=== PATIENT | female | born 1985 ===

== ENCOUNTER 2024-07-24 09:55 | Inpatient (IN) | payer SELFPAY ==
[2024-07-24] VITALS (18 sets, daily range): BP systolic 95–128; BP diastolic 57–72; PULSE 56–100; RESP 13–20; TEMP 36.6–36.9; O2SAT 97–100; BMI 23.8
--- NOTE | 2024-07-24 10:03 | XR_ITS ---
WS: [id number] Exam: XR chest 1V portable [id number] Date/Time of Exam: 07/24/2024 10:03 AM Reason For Exam: dyspnea/cough No priors. The lungs are fully inflated and clear. Normal cardiomediastinal silhouette. Some rotation of the [address] noted. No pleural effusions. Unremarkable bony elements. XR/XR chest 1V portable [id number] IMPRESSION: 1. Negative chest.
--- NOTE | 2024-07-24 10:07 | PC.NURSE ---
POISON CONTROL CALLED. HAS POTENTIAL TO BE LETHAL, LOOKING FOR GASTRIC HEMORRHAGE, ANGIOEDEMA, HYPOTENSION, TACHYCARDIA, LEASE ANALYST STIMULATION. SOLU-MEDROL, BENADRYL, SUBCUTANEOUS EPI, AND SYSTEMATIC SUPPORTIVE CARE. EMS VITALS: 135/90, 88 HR.
--- NOTE | 2024-07-24 10:19 | PC.NURSE ---
pts mother called asking for information but is not in patients chart. informed mother that pt could not have visitors except from 3-4pm. mother states 'please tell me whats going on with her, she is our only child. please just tell me if shes alive.' informed mother that she is not in the chart and i could not give her any information about pt or who is in her chart.
--- NOTE | 2024-07-24 11:57 | PC.NURSE ---
96 hour hold rights read and reviewed with patient. Bryant from Security present during reading of rights. Patient verbalized understandings of rights and copy of rights given to patient.
[2024-07-24 12:05] LABS: Acetaminophen < 5.0 ug/mL (10-30); Alanine Aminotransferase 13 U/L (0-33); Albumin Level 3.7 g/dL (3.5-5.2); Alcohol Level < 10 mg/dL (0-10); Alkaline Phosphatase 42 U/L (35-105); Aspartate Amino Transferase 17 U/L (0-32); Blood Urea Nitrogen 7 mg/dL (6-20); Calcium 8.2 mg/dL (8.5-10.5); Carbon Dioxide 19 mmol/L (22-29); Chloride 108 mmol/L (98-107); Creatinine Clr Calc Pharmacy 164.6659; Globulin 2.3 g/dL (1.3-4.6); Glomerular Filtration Rate 180.6 mL/min (90-130); Glucose 84 mg/dL (65-115); Osmolality Calculated 287 mOsm/kg (285-295); Salicylate < 0.3 mg/dL (3-10); Sodium 140 mmol/L (136-145); Total Bilirubin 0.4 mg/dL (0.15-1.2)
--- NOTE | 2024-07-24 12:05 | ED_ITS ---
HPI - Overdose 2 General: Chief Complaint: Overdose Stated Complaint: attempted od Time Seen by Provider: 07/24/24 10:02 History of Present Illness: 38-year-old female presents to the emerg ency room after an attempted overdose on a cleaning product which she mixed in water and swallowed she thinks she maybe drank about a half a cup of the dry powder that she mixed in with the water but she did vomit several of that up she is lethargic when she arrived here she denies any recent use of drugs or alcohol Related Data Home Medications Medication Instructions Recorded Confirmed multivitamin with minerals-folic 2 tab PO DAILY 07/24/24 07/24/24 acid 200 mcg chewable tablet (Women's Multivitamin Gummies) Review of Systems 2 Const: Denies: fever(s) or chills Card: Denies: chest pain Resp: Denies: dyspnea GI: Denies: abdominal pain : Denies: dysuria, urinary frequency or urinary urgency Musc: Denies: neck pain or back pain Skin/Breast: Denies: rash Physical Exam 2 Const: COMMON NORMALS: no acute distress GENERAL APPEARANCE: cooperative and comfortable ORIENTATION/CONSCIOUSNESS: Yes awake, Yes oriented to person, Yes oriented to place and Yes oriented to time HENMT: COMMON NORMALS: normocephalic, atraumatic and hearing grossly normal bilaterally HEAD & SCALP: normocephalic and atraumatic Resp: COMMON NORMALS: normal respiratory effort, No retractions, No use of accessory muscles and clear to auscultation bilaterally AUSCULTATION: clear to auscultation bilaterally Cardio: COMMON NORMALS: regular rate, regular rhythm and No murmurs present (Cardio) RATE: regular rate RHYTHM: regular rhythm GI: COMMON NORMALS: Soft to palpation and No hepatosplenomegaly present A USCULTATION: Yes normoactive bowel sounds PALPATION: Yes Soft to palpation, No Tenderness to palpation present (GI), No Guarding due to palpation present (GI) and Yes No hepatosplenomegaly present Extremity: COMMON NORMALS: normal to inspection, capillary refill normal, no clubbing, cyanosis or edema, no calf tenderness and no pedal edema Neuro: SENSORIUM/ORIENTATION: Yes oriented to person, Yes oriented to place and Yes oriented to time Skin: COMMON NORMALS: no rashes or lesions noted GENERAL SKIN EXAM: no rashes or lesions noted Course 2 Vital Signs: Vital signs: Vital Signs Temperature 98.4 F 07/24/24 09:58 Pulse Rate 64 07/24/24 14:33 Respiratory Rate 17 07/24/24 14:01 Blood Pressure 98/61 07/24/24 14:33 Pulse Oximetry 100 07/24/24 14:33 Oxygen Delivery Me thod Room Air 07/24/24 09:58 MDM - Overdose Medical Decision Making Contacted poison control and they recommended observation and supportive cares. Patient does not have any signs of mucosal injury. She has not had any symptoms since she has arrived here on the monitor and EKG she has remained normal. Laboratory tests are positive for amphetamines and marijuana. Alcohol negative salicylates and acetaminophen otherwise negative discussed with Dr. Acevedo he agrees to take patient in the psychiatric department. Patient is admitted under 96-hour hold. Medical Records I reviewed the patient's medical records. Lab Data I reviewed the patient's lab results. 07/24/24 14:10 07/24/24 11:43 Radiology Impressions Chest X-Ray 07/24/24 10:03 IMPRESSION: 1. Negative chest. Laboratory Results WBC Cancelled 07/24/24 11:17 Corrected WBC Cancelled 07/24/24 11:17 RBC Cancelled 07/24/24 11:17 Hgb Cancelled 07/24/24 11:17 Hct Cancelled 07/24/24 11:17 MCV Cancelled 07/24/24 11:17 MCH Cancelled 07/24/24 11:17 MCHC Cancelled 07/24/24 11:17 RDW Cancelled 07/24/24 11:17 Plt Count Cancelled 07/24/24 11:17 MPV Cancelled 07/24/24 11:17 Gran % Cancelled 07/24/24 11:17 Neut % (Auto) Cancelled 07/24/24 11:17 Lymph % (Auto) Cancelled 07/24/24 11:17 [place] % (Auto) Cancelled 07/24/24 11:17 Eos % (Auto) Cancelled 07/24/24 11:17 Baso % (Auto) Cancelled 07/24/24 11:17 Neut # (Auto) Cancelled 07/24/24 11:17 Lymph # (Auto) Cancelled 07/24/24 11:17 [place] # (Auto) Cancelled 07/24/24 11:17 Eos # (Auto) Cancelled 07/24/24 11:17 Baso # (Auto) Cancelled 07/24/24 11:17 Absolute Gran (auto) Cancelled 07/24/24 11:17 Nucleated RBC % (auto) Cancelled 07/24/24 11:17 Nucleated RBCs # Cancelled 07/24/24 11:17 Sodium 140 mmol/L (136-145) 07/24/24 11:43 Potassium 3.6 mmol/L (3.5-5.1) 07/24/24 11:43 Chloride 108 mmol/L (98-107) H 07/24/24 11:43 Carbon Dioxide 19 mmol/L (22-29) L 07/24/24 11:43 Anion Gap 16.6 (5-19) 07/24/24 11:43 BUN 7 mg/dL (6-20) 07/24/24 11:43 Creatinine 0.4 mg/dL (0.5-0.9) L 07/24/24 11:43 GFR Calculation 180.6 mL/min (90-130) H 07/24/24 11:43 Glucose 84 mg/dL (65-115) 07/24/24 11:43 Calculated Osmolality 287 mOsm/kg (285-295) 07/24/24 11:43 Calcium 8.2 mg/dL (8.5-10.5) L 07/24/24 11:43 Total Bilirubin 0.4 mg/dL (0.15-1.2) 07/24/24 11:43 AST 17 U/L (0-32) 07/24/24 11:43 ALT 13 U/L (0-33) 07/24/24 11:43 Alkaline Phosphatase 42 U/L (35-105) 07/24/24 11:43 Total Protein 6.0 g/dL (6.6-8.7) L 07/24/24 11:43 Albumin 3.7 g/dL (3.5-5.2) 07/24/24 11:43 Globulin 2.3 g/dL (1.3-4.6) 07/24/24 11:43 Urine Color Yellow (Yellow) 07/24/24 10:46 Urine Appearance Clear (CLEAR) 07/24/24 10:46 Urine pH 5.5 (5-7) 07/24/24 10:46 Ur Specific [place] 1.009 (1.005-1.030) 07/24/24 10:46 Urine Protein Negative (Negative) 07/24/24 10:46 Urine Glucose (UA) Negative (Normal) 07/24/24 10:46 Urine Ketones 1+ (Negative) H 07/24/24 10:46 Urine Blood Negative (Negative) 07/24/24 10:46 Urine Nitrate Negative (Negative) 07/24/24 10:46 Urine Bilirubin Negative (Negative) 07/24/24 10:46 Urine Urobilinogen 0.2 mg/dL (Negative) 07/24/24 10:46 Ur Leukocyte Esterase Negative (Negative) 07/24/24 10:46 Urine RBC 0-2 /hpf (0-2) 07/24/24 10:46 Urine WBC 0-5 /hpf (0-5) 07/24/24 10:46 Ur Squamous Epith Cells 0-5 /hpf (0-5) 07/24/24 10:46 Amorphous Sediment Not Reportable 07/24/24 10:46 Urine Bacteria None seen /hpf (NONE) 07/24/24 10:46 Hyaline Casts 0-4 /lpf H 07/24/24 10:46 Salicylates < 0.3 mg/dL (3-10) L 07/24/24 11:43 Urine Opiates Screen Negative ng/mL (Negative) 07/24/24 10:46 Acetaminophen < 5.0 ug/mL (10-30) L 07/24/24 11:43 Ur Barbiturates Screen Negative ng/mL (Negative) 07/24/24 10:46 Ur Phencyclidine Scrn Negative ng/mL (Negative) 07/24/24 10:46 Ur Amphetamines Screen Positive ng/mL (Negative) H 07/24/24 10:46 U Benzodiazepines Scrn Negative ng/mL (Negative) 07/24/24 10:46 Urine Cocaine Screen Negative ng/mL (Negative) 07/24/24 10:46 U Marijuana (THC) Screen Positive ng/mL (Negative) H 07/24/24 10:46 Ethyl Alcohol < 10 mg/dL (0-10) 07/24/24 11:43 All radiology interpretation(s) finalized by discharge Discharge Plan Discharge Patient Disposition: Admitted As Inpatient Admit Provider: Lion Horowitz Clinical Impression: Suicide attempt by drug ingestion, Methamphetamine use Condition: Stable Coding Level of Care Code ED Leg Man for Tavo Esparza
[2024-07-24 12:06] LABS: Anion Gap 16.6 (5-19); Potassium 3.6 mmol/L (3.5-5.1)
--- NOTE | 2024-07-24 13:34 | PC.NURSE ---
POISON CONTROL STATES PATIENT IS OK FOR PATIENT TO GO STRESS UNIT.
[2024-07-24 13:41] LABS: Bilirubin Urine Negative (Negative); Blood Urine Negative (Negative); Glucose Urine UA Negative (Normal); Ketones Urine 1+ (Negative); Leukocyte Esterase Urine Negative (Negative); Nitrate Urine Negative (Negative); Protein Urine Negative (Negative); Specific Gravity, Urine 1.009 (1.005-1.030); Urine Appearance Clear (CLEAR); Urine Color Yellow (Yellow); Urobilinogen Urine 0.2 mg/dL (Negative); pH Urine 5.5 (5-7)
[2024-07-24 13:46] LABS: Add Urine Microscopic? YES; Bacteria Urine None Seen /hpf; Hyaline Casts Urine 0-4 /lpf; RBC Urine 0-2 /hpf (0-2); Squamous Epithelial Cell Urine 0-5 /hpf (0-5); WBC Urine 0-5 /hpf (0-5)
[2024-07-24 13:49] LABS: Amphetamines Screen Urine Positive (Negative); Barbiturates Screen Urine Negative (Negative); Benzodiazepines Screen Urine Negative (Negative); Cocaine Screen Urine Negative (Negative); Opiate Screen Urine Negative (Negative); PCP Screen Urine Negative (Negative); THC Screen Urine Positive (Negative)
[2024-07-24 14:12] LABS: Basophils % 0.5 %; Eosinophils # 0.1 10^3/uL (0.0-0.8); Eosinophils % 0.7 %; Hematocrit 39.1 % (36-47); Lymphocytes % 34.1 %; Mean Corpuscular HGB Conc 30.9 g/dL (30-55); Mean Corpuscular Hemoglobin 32.3 pg (27-33); Mean Corpuscular Volume 104.3 fl (85-98); Mean Platelet Volume 8.9 fL (7.4-10.4); Monocytes # 0.8 10^3/uL (0.2-0.9); Monocytes % 8.6 %; Neutrophils % 55.8 %; Nucleated Red Blood Cells % 0 %; Platelet Count 452 10^3/cmm (157-399); Red Blood Count 3.75 10^6/uL (3.85-5.65); Red Cell Distribution Width 12.8 % (12.1-15.1); White Blood Count 8.77 10^3/uL (3.29-11.43)
--- NOTE | 2024-07-24 15:57 | PC.NURSE ---
Patient reportedly attempted to overdose on half a cup of iron-out acid cleaner with water. She says she did this because she found out who her fiance of 10 years was cheating on her with. 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 Endorses attempting to overdose because she thought she would rather than see him with someone else. Patient has a history of IV meth use, but says she only smokes or eats it now with her last use being 2 days ago. Unsure of how much she uses but says it is a lot . Also endorses daily marijuana and tobacco usage. She denies any psychiatric history of any kind and denies feeling suicidal at this time. Patient says she feels stupid and would never attempt to OD again. Patient cooperative. Sobbing off and on throughout admission assessment.
[2024-07-24] MEDS: nicotine 2 mg Gum BUCCAL (16:44)
[2024-07-24] MEDS: OLANZapine 5 mg ODT PO (17:11)
[2024-07-24] MEDS: hyDROXYzine 25 mg Capsule 50 MG PO ×2 (17:11→22:12)
--- NOTE | 2024-07-24 17:17 | PC.NURSE ---
Addendum entered and electronically signed by Soraya Chung RN 07/24/24 18:17: PT OBSERVED IN DAY ROOM RESTING. MEDICATIONS DEEMED EFFECTIVE, PT IS NO LONGER TEARFUL. Original Note: PT OBSERVED IN DAY ROOM SLUMPED OVER CRYING HYSTERICALLY. SET KEY DRIVER OFFERRED TO SPEAK TO PT TO CALM HER BUT PT DECLINES STATING SHE WILL JUST SIT THERE AND CRY. RN ADMINISTERED VISTARIL 50 MG AND ZYDIS 5MG ORDERED FOR INCREASED ANXIETY. PT DID TAKE THE MEDICATIONS WITHOUT DIFFICULTY. PT THEN SAT IN DAY ROOM AND ATE DINNER.. CONTINUES TO HAVE ANXIETY, DEPRESSION AND IS TEARFUL AT TIMES. SUPPORT VOICED.
[2024-07-24] MEDS: trazodone 50 mg Tablet PO (22:12)
[2024-07-25 06:00] VITALS: BP 96/51; PULSE 71; RESP 16; TEMP 36.7; O2SAT 99
[2024-07-25] MEDS: multivitamin therapeutic Tablet 1 TAB PO (08:46)
--- NOTE | 2024-07-25 09:42 | P.NPUHP_ITS ---
Providers/Chief Complaint 2 Admitting Physician: Lion Horowitz MD Chief Complaint: attempted od HPI NPU History of Present Illness Trinity Mancia is a 38 year old female with no previous history of inpatient psychiatric hospitalization who presented to the emergency department by EMS after the patient had attempted overdose by mixing a cleaning product with water. The patient had reported that she had wanted to and acknowledged having thrown up several times after consuming the liquid. Patient was medically cleared and admitted to the neuropsychiatric unit for further evaluation and treatment. Patient had reported that she had received information on 07/23/2024 that her fianc? of 10 years had been recently cheating on her. She reports that she received this information from her son over a phone call. She reports that she had then confronted her fianc? at home yesterday and she reports that her fianc? had left the home last night. She reports that she had thought all night about it and stated that she was in a bad place and subsequently this morning reported that she had mixed the concoction and consumed it. She reports that she was found by her fianc?'s mother and emergency services were called. Patient reports that she had done something stupid . 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 She had reported no recent problems with depression or anxiety. She denied any history of changes in energy or appetite. She denied any history of previous suicide attempts. She reported no current feelings of hopelessness. She had denied any history of rodney. She denied any history of psychotic symptoms. She had reported that she is a routine daily user of methamphetamine intranasally for several years along with regular and frequent use of marijuana as well. She had denied any history of psychosis associated with the use of either substance. She reports no current active psychosocial stressors otherwise. Inpatient psychiatric history: None Outpatient psychiatric history: None Substance abuse history: She reports no history of alcohol abuse with no history of alcohol dependence either. She has no history of alcohol related withdrawal symptoms. The patient reports as stated above use of methamphetamine for more than 15 years and reports no history of drug or alcohol treatment of any kind. She denies any history of opiate abuse. She had endorsed routine marijuana use since the age of 18. Legal history: None reported Medical history: None reported Surgical history: None Allergies: No known drug allergies Current medications: None Family psychiatric history: None reported Social history: Patient was raised in [facility] [place] [facility] and born in [facility]. She reports that she grew up in an intact family until the age of 9 when her parents . She reports that she is the only child. She had denied any history of sexual physical or emotional abuse. She reported no history of learning problems. She states she graduated from high school in [place] [place] [facility] and was at the age of 18 1 time previously. She is currently . She has a child from this previous relationship age 17.She currently resides on [address] in [place] and is currently unemployed. She has been with her fianc? for the past 10 years. Meds NPU Home Medications Medication Instructions Recorded Confirmed Last Taken Type multivitamin with minerals-folic 2 tab PO DAILY 07/24/24 07/24/24 07/23/24 History acid 200 mcg chewable tablet (Women's Multivitamin Gummies) Allergies Allergy/AdvReac Type Severity Reaction Status Date / Time Penicillins Allergy ALGY-Rash Verified 07/24/24 15:32 Mental Status Exam 2 MSE Comments: Patient is a pleasant cooperative female who appeared her stated age with normal hygiene and no evidence of any abnormal involuntary motor movements, tics, or tremors appreciated. Her speech was normal in regards to rate rhythm and prosody. There was no evidence of psychomotor agitation or psychomotor retardation. Her mood was described as okay. Her affect appeared slightly restricted in range. Her thought process was linear logical and goal-directed. Her thought content showed no active homicidal or suicidal ideation currently although she had acknowledged wanting to earlier this morning leading to her taking an overdose. There was no clear evidence of delusional thinking. She did not appear to be responding to internal stimuli. She was alert and oriented person place time and situation. Her insight is poor. Her judgment was limited. Her impulse control appeared poor as well. Her recent and remote memory were grossly intact. Vitals/I&O/Wt Last Vital Signs Temp 97.9 F 07/24/24 15:33 Pulse 79 07/24/24 15:33 Resp 16 07/24/24 15:33 BP 114/72 07/24/24 15:33 Pulse Ox 100 07/24/24 15:33 O2 Del Method Room Air 07/24/24 15:34 Weight last 48 hrs Weight 56.699 kg Weight 58.967 kg Data NPU 07/24/24 14:10 07/24/24 11:43 A&P Assessment and plan (1) Suicide attempt by drug ingestion: (2) Methamphetamine use: (3) Depression, unspecified: Plan 38-year-old female with a history of polysubstance abuse admitted after reporting acute stressor of finding out that her fianc? of 10 years had infdelity issues proceeding to make a concoction of potentially dangerous cleaning substances with water and in taking it with the intent of to . The patient is currently minimizing her suicidal thoughts. #1.? Engage patient in individual milieu and group therapy. #2?? Recommend sober living treatment at the highest level of care to which the patient is willing to commit #3??? Will monitor patient under auspices of 96 hour hold here. Patient resistant to any drug treatment or treatment for any mood issues. #4?? TO-15 minute checks? #5?? Will attempt to gather collateral information Involuntary Hold Information 2 96 Hour Hold: 96 Hour Involuntary Admission: Yes 96 Hour Hold Ending Date: 08/03/24 96 Hour Hold Ending Time: 10:15 Attestations NPU 2 Medical Necessity Statement*: Inpatient hospitalization is medically necessary and deemed to ?be ?the clinically appropriate intervention ?at this time.? We will monitor/initiate medications and make changes as indicated.? The patient will be in the hospital for over 2 midnights.? The patient?s likely length of stay 5-7 days. Coding Level of Care Code Acute Code for [facility] Fwd Diagnoses Suicide attempt by drug ingestion T50.902A Methamphetamine use F15.10 Depression, unspecified F32.A
[2024-07-25 14:00] VITALS: BP 87/56; PULSE 100; RESP 16; TEMP 36.6; O2SAT 97
[2024-07-25 19:53] VITALS: BP 98/58; PULSE 98; RESP 16; TEMP 36.8; O2SAT 100
[2024-07-25] MEDS: hyDROXYzine 25 mg Capsule 50 MG PO (20:49)
[2024-07-25] MEDS: trazodone 50 mg Tablet PO (20:49)
[2024-07-26 06:00] VITALS: BP 98/57; PULSE 88; RESP 16; TEMP 36.6; O2SAT 96; BMI 22.6
[2024-07-26] MEDS: multivitamin therapeutic Tablet 1 TAB PO (08:43)
--- NOTE | 2024-07-26 09:32 | PC.NURSE ---
asked pt if she wanted to eat. pt stated no she was not hungry. kiln charger notified.
[2024-07-26 14:00] VITALS: BP 103/67; PULSE 91; RESP 16; TEMP 36.8; O2SAT 100
--- NOTE | 2024-07-26 14:07 | W.PM.NPUPNS ---
Subjective NPU Subjective: 38-year-old female with a history of depression and methamphetamine use admitted with overdose on nonspecified industrial cleaner. The patient continued to minimize any depression at this time. She stated that she had improved sleep with trazodone. She reported no pain or ongoing sequela from having swallowed the oral industrial cleaner. Patient was compliant on the milieu and reported sleeping better. He denied any feelings of hopelessness or worthlessness. She reported some low energy. She had reported some anger over discovering that her had been having a an affair. She had reported that she felt that they were still together. She had reported no contact from any family currently. Mental Status Exam MSE Comments: Patient is a pleasant cooperative female who appeared her stated age with normal hygiene and no evidence of any abnormal involuntary motor movements, tics, or tremors appreciated. Her speech was normal in regards to rate rhythm and prosody. There was evidence of mild psychomotor retardation. Her mood was described as okay. Her affect appeared restricted in range today. Her thought process was linear,logical and goal-directed. Her thought content showed no active homicidal or suicidal ideation currently although she had acknowledged wanting to earlier this morning leading to her taking an overdose. There was no clear evidence of delusional thinking. She did not appear to be responding to internal stimuli. She was alert and oriented person place time and situation. Her insight is poor. Her judgment was limited. Her impulse control appeared poor as well. Her recent and remote memory were grossly intact. Vitals/I&O/Wt Last Vital Signs Temp 98 F 07/26/24 06:00 Pulse 88 07/26/24 06:00 Resp 16 07/26/24 06:00 BP 98/57 07/26/24 06:00 Pulse Ox 96 07/26/24 06:00 O2 Del Method Room Air 07/26/24 06:00 Weight last 48 hrs Weight 56.302 kg Weight 56.699 kg Data NPU 07/24/24 14:10 07/24/24 11:43 A&P Assessment and plan (1) Depression, unspecified: (2) Suicide attempt by drug ingestion: (3) Methamphetamine use: Plan 38-year-old female with a history of polysubstance abuse admitted after reporting acute stressor of finding out that her fianc? of 10 years had infdelity issues proceeding to make a concoction of potentially dangerous cleaning substances with water and in taking it with the intent of to . The patient is currently minimizing her suicidal thoughts. #1.? Engage patient in individual milieu and group therapy. #2?? Recommend sober living treatment at the highest level of care to which the patient is willing to commit #3??? Will monitor patient under auspices of 96 hour hold here. Patient resistant to any substance abuse treatment or treatment for any mood issues. #4?? TO-15 minute checks? #5?? Will attempt to gather collateral information Involuntary Hold Information 96 Hour Hold: 96 Hour Involuntary Admission: Yes 96 Hour Hold Ending Date: 08/03/24 96 Hour Hold Ending Time: 10:15 Other Hold: Hold End Date: 08/03/24 Attestations NPU Medical Necessity Statement*: Inpatient hospitalization is medically necessary and deemed to ?be ?the clinically appropriate intervention ?at this time.? We will monitor/initiate medications and make changes as indicated.? The patient?s likely length of stay 5-7 days. Coding Level of Care Code Acute Code for [facility] Fwd Diagnoses Depression, unspecified F32.A Suicide attempt by drug ingestion T50.902A Methamphetamine use F15.10
[2024-07-26 19:29] VITALS: BP 108/68; PULSE 98; RESP 16; TEMP 36.9; O2SAT 98
[2024-07-27 06:00] VITALS: BP 100/64; PULSE 95; RESP 16; TEMP 36.6; O2SAT 98
[2024-07-27] MEDS: multivitamin therapeutic Tablet 1 TAB PO (08:27)
--- NOTE | 2024-07-27 08:46 | PC.NURSE ---
UP FOR BREAKFAST. DENIES PAIN. DENIES SI/HI AND AVH AT THIS TIME. FLAT AFFECT IS NOTED. RATES ANXIETY AND DEPRESSION 0/10. REPORTS SHE SLEPT GOOD. STATES HER GOAL FOR THE DAY IS TO SLEEP SO I CAN STAY AWAY FROM THE REAL CRAZY PEOPLE IN HERE. PT THEN LAUGHED THEN LAID DOWN TO GO BACK TO BED. PT WAS ENCOURAGED TO GO TO GROUPS TODAY. ALL QUESTIONS ANSWERED AND SUPPORT VOICED.
[2024-07-27] MEDS: nicotine 4 mg lozenge MUCOUS MEM (10:19)
--- NOTE | 2024-07-27 11:07 | PC.NURSE ---
NEW ORDERS RECEIVED FOR HEPATITIS PANEL FROM DR. ATKINSON TO CHECK HEPATITIS C DUE TO IV DRUG HISTORY. ORDERS PLACED. PT EDUCATED ON NEW ORDERS. SUPPORT VOICED.
[2024-07-27 14:00] VITALS: BP 113/74; PULSE 100; RESP 14; TEMP 36.8; O2SAT 100
--- NOTE | 2024-07-27 15:15 | W.PM.NPUPNS ---
Subjective NPU Subjective: 38-year-old female with a history of depression and methamphetamine use admitted with overdose on nonspecified block cleaner. The patient reported no suicidal thoughts at this time. She had stated that she would never use methamphetamine again. She had reported that she would be amenable to receiving counseling. She reported no anxiety. She had isolated herself on the milieu. She had stated that she was feeling better. She had reported continued use of methamphetamine but was unable to describe how she felt and why she continued to use. She had minimized any adverse consequences associated with her amphetamine use. Mental Status Exam MSE Comments: Patient is a pleasant cooperative female who appeared her stated age with normal hygiene and no evidence of any abnormal involuntary motor movements, tics, or tremors appreciated. Her speech was normal in regards to rate, rhythm, and prosody. There was evidence of mild psychomotor retardation. Her mood was described as okay. Her affect appeared somewhat subdued. Her thought process was linear,logical and goal-directed. Her thought content showed no active homicidal or suicidal ideation. There was no clear evidence of delusional thinking. She did not appear to be responding to internal stimuli. She was alert and oriented person place time and situation. Her insight is poor. Her judgment was limited. Her impulse control appeared poor as well. Her recent and remote memory were grossly intact. Vitals/I&O/Wt Last Vital Signs Temp 98.2 F 07/27/24 14:00 Pulse 100 07/27/24 14:00 Resp 14 07/27/24 14:00 BP 113/74 07/27/24 14:00 Pulse Ox 100 07/27/24 14:00 O2 Del Method Room Air 07/27/24 14:00 Weight last 48 hrs Weight 56.302 kg Data NPU 07/24/24 14:10 07/24/24 11:43 A&P Assessment and plan (1) Depression, unspecified: (2) Suicide attempt by drug ingestion: (3) Methamphetamine use: Plan 38-year-old female with a history of polysubstance abuse admitted after reporting acute stressor of finding out that her fianc? of 10 years had infdelity issues proceeding to make a concoction of potentially dangerous cleaning substances with water and in taking it with the intent of to . The patient is currently minimizing her suicidal thoughts. #1.? Engage patient in individual milieu and group therapy. #2?? Recommend sober living treatment at the highest level of care to which the patient is willing to commit #3??? Will monitor patient under auspices of 96 hour hold here. Patient resistant to any substance abuse treatment or treatment for any mood issues. #4?? TO-15 minute checks? Involuntary Hold Information 96 Hour Hold: 96 Hour Involuntary Admission: Yes 96 Hour Hold Ending Date: 08/03/24 96 Hour Hold Ending Time: 10:15 Other Hold: Hold End Date: 08/03/24 Attestations NPU Medical Necessity Statement*: Inpatient hospitalization is medically necessary and deemed to ?be ?the clinically appropriate intervention ?at this time.? We will monitor/initiate medications and make changes as indicated.? The patient?s likely length of stay 2-3 days. Coding Level of Care Code Acute Code for [facility] Fwd Diagnoses Depression, unspecified F32.A Suicide attempt by drug ingestion T50.902A Methamphetamine use F15.10
[2024-07-27 17:01] LABS: Hepatitis A Antibody IgM Non-Reactive (Nonreactive); Hepatitis B Core AB, Total Non-Reactive (Nonreactive); Hepatitis B Surface AB 109.2 (11.5-1000); Hepatitis B Surface Antigen Non-Reactive (Nonreactive); Hepatitis C Virus Antibody Non-Reactive (Nonreactive)
[2024-07-27 19:21] VITALS: BP 122/80; PULSE 88; RESP 16; TEMP 36.8; O2SAT 100
[2024-07-27] MEDS: trazodone 50 mg Tablet PO (19:38)
[2024-07-27 22:00] VITALS: BP 122/80; PULSE 88; RESP 16; TEMP 36.8; O2SAT 100
[2024-07-28 06:00] VITALS: BP 93/63; PULSE 94; RESP 15; TEMP 36.6; O2SAT 99
[2024-07-28] MEDS: multivitamin therapeutic Tablet 1 TAB PO (09:58)
[2024-07-28] MEDS: nicotine 4 mg lozenge MUCOUS MEM (09:58)
--- NOTE | 2024-07-28 13:06 | P.NPUDS_ITS ---
Diagnoses at Discharge Discharge Diagnosis (1) Depression, unspecified: Status: Acute (2) Suicide attempt by drug ingestion: Status: Acute (3) Methamphetamine use: Status: Acute Reason for Visit Reason for Visit: attempted od Brief History: History of Present Illness Trinity Mancia is a 38 year old female with no previous history of inpatient psychiatric hospitalization who presented to the emergency department by EMS after the patient had attempted overdose by mixing a cleaning product with water. The patient had reported that she had wanted to and acknowledged having thrown up several times after consuming the liquid. Patient was medically cleared and admitted to the neuropsychiatric unit for further evaluation and treatment. Patient had reported that she had received information on 07/23/2024 that her fianc? of 10 years had been recently cheating on her. She reports that she received this information from her son over a phone call. She reports that she had then confronted her fianc? at home yesterday and she reports that her fianc? had left the home last night. She re ports that she had thought all night about it and stated that she was in a bad place and subsequently this morning reported that she had mixed the concoction and consumed it. She reports that she was found by her fianc?'s mother and emergency services were called. Patient reports that she had done something stupid . 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 She had reported no recent problems with depression or anxiety. She denied any history of changes in energy or appetite. She denied any history of previous suicide attempts. She reported no current feelings of hopelessness. She had denied any history of rodney. She denied any history of psychotic symptoms. She had reported that she is a routine daily user of methamphetamine intranasally for several years along with regular and frequent use of marijuana as well. She had denied any history of psychosis associated with the use of either substance. She reports no current active psychosocial stressors otherwise. Inpatient psychiatric history: None Outpatient psychiatric history: None Substance abuse history: She reports no history of alcohol abuse with no history of alcohol dependence either. She has no history of alcohol related withdrawal symptoms. The patient reports as stated above use of methamphetamine for more than 15 years and reports no history of drug or alcohol treatment of any kind. She denies any history of opiate abuse. She had endorsed routine marijuana use since the age of 18. Legal history: None reported Medical history: None reported Surgical history: None Allergies: No known drug allergies Current medications: None Family psychiatric history: None reported Social history: Patient was raised in [facility] and born in [facility]. She reports that she grew up in an intact family until the age of 9 when her parents . She reports that she is the only child. She had denied any history of sexual physical or emotional abuse. She reported no history of learning problems. She states she graduated from high school in [facility] and was at the age of 18 1 time previously. She is currently . She has a child from this previous relationship age 17.She currently [place] [address] in [facility] and is currently unemployed. She has been with her fianc? for the past 10 years. Hospital Course Hospital Course During the hospitalization, the patient had routine laboratory studies which were within normal limits except for a few outliers.? Additionally, there was a general medical evaluation which was also within normal limits and revealed no new acute processes.? At the time of discharge, lethality was denied.the patient had admitted to using methamphetamine and apparently the methamphetamine use appeared to have caused some depression after the patient had been withdrawing off of methamphetamine. She had minimized any problems here stating that she had done something foolish. She had refused any antidepressants and refused any substance abuse treatment despite continued adverse consequences from use. Nevertheless, she showed no evidence of any self-harm and due to her relative disinterest in treatment she was discharged home. Mood and anxiety were well managed.? The patient endorsed a plan to avoid all drugs of abuse and follow up with the aftercare recommendations of the treatment team.? The patient was eval uated and deemed to be absent credible lethality and had achieved the maximum benefit from an inpatient hospitalization, and so was discharged. ? Involuntary Hold Information 96 Hour Hold: 96 Hour Involuntary Admission: Yes 96 Hour Hold Ending Date: 08/03/24 96 Hour Hold Ending Time: 10:15 Other Hold: Hold End Date: 08/03/24 Mental Status Exam MSE Comments: Patient is a pleasant cooperative female who appeared her stated age with normal hygiene and no evidence of any abnormal involuntary motor movements, tics, or tremors appreciated. Her speech was normal in regards to rate, rhythm, and prosody. There was evidence of mild psychomotor retardation. Her mood was described as okay. Her affect appeared euthymic at the time of discharge. Her thought process was linear,logical and goal-directed. Her thought content showed no active homicidal or suicidal ideation. There was no clear evidence of delusional thinking. She did not appear to be responding to internal stimuli. She was alert and oriented person place time and situation. Her insight is poor. Her judgment was fair. Her impulse control appeared fair. Her recent and remote memory were grossly intact. Discharge Data Studies Completed and Pending: Completed Studies During Hospitalization Category Date Time Status XR chest 1V doris ble [id number] Stat Exams 07/24/24 10:03 Completed Radiology Impressions Chest X-Ray 07/24/24 10:03 IMPRESSION: 1. Negative chest. Laboratory Results WBC 8.77 10^3/uL (3.2 9-11.43) 07/24/24 14:10 Corrected WBC Cancelled 07/24/24 11:17 RBC 3.75 10^6/uL (3.8 5-5.65) L 07/24/24 14:10 Hgb 12.10 g/dL (11.27 -16.99) 07/24/24 14:10 Hct 39.1 % (36-47) 07/24/24 14:10 MCV 104.3 fl (85-98) H 07/24/24 14:10 MCH 32.3 pg (27-33) 07/24/24 14:10 MCHC 30.9 g/dL (30-55) 07/24/24 14:10 RDW 12.8 % (12.1-15.1 ) 07/24/24 14:10 Plt Count 452 10^3/cmm (157 -399) H 07/24/24 14:10 MPV 8.9 fL (7.4-10.4) 07/24/24 14:10 Gran % Cancelled 07/24/24 11:17 Neut % (Auto) 55.8 % 07/24/24 14:10 Lymph % (Auto) 34.1 % 07/24/24 14:10 Schuyler % (Auto) 8.6 % 07/24/24 14:10 Eos % (Auto) 0.7 % 07/24/24 14:10 Baso % (Auto) 0.5 % 07/24/24 14:10 Neut # (Auto) 4.90 10^3/uL (1.8 -7.7) 07/24/24 14:10 Lymph # (Auto) 3.0 10^3/uL (0.8- 4.8) 07/24/24 14:10 Schuyler # (Auto) 0.8 10^3/uL (0.2- 0.9) 07/24/24 14:10 Eos # (Auto) 0.1 10^3/uL (0.0- 0.8) 07/24/24 14:10 Baso # (Auto) 0.0 10^3/uL (0.0- 0.1) 07/24/24 14:10 Absolute Gran (aut o) Cancelled 07/24/24 11:17 Nucleated RBC % (a uto) 0 % 07/24/24 14:10 Nucleated RBCs # 0.0 /100WBC 07/24/24 14:10 Sodium 140 mmol/L (136-1 45) 07/24/24 11:43 Potassium 3.6 mmol/L (3.5-5 .1) 07/24/24 11:43 Chloride 108 mmol/L (98-10 7) H 07/24/24 11:43 Carbon Dioxide 19 mmol/L (22-29) L 07/24/24 11:43 Anion Gap 16.6 (5-19) 07/24/24 11:43 BUN 7 mg/dL (6-20) 07/24/24 11:43 Creatinine 0.4 mg/dL (0.5-0. 9) L 07/24/24 11:43 GFR Calculation 180.6 mL/min (90- 130) H 07/24/24 11:43 Glucose 84 mg/dL (65-115) 07/24/24 11:43 Calculated Osmolal ity 287 mOsm/kg (285- 295) 07/24/24 11:43 Calcium 8.2 mg/dL (8.5-10 .5) L 07/24/24 11:43 Total Bilirubin 0.4 mg/dL (0.15-1 .2) 07/24/24 11:43 AST 17 U/L (0-32) 07/24/24 11:43 ALT 13 U/L (0-33) 07/24/24 11:43 Alkaline Phosphata se 42 U/L (35-105) 07/24/24 11:43 Total Protein 6.0 g/dL (6.6-8.7 ) L 07/24/24 11:43 Albumin 3.7 g/dL (3.5-5.2 ) 07/24/24 11:43 Globulin 2.3 g/dL (1.3-4.6 ) 07/24/24 11:43 Urine Color Yellow (Yellow) 07/24/24 10:46 Urine Appearance Clear (CLEAR) 07/24/24 10:46 Urine pH 5.5 (5-7) 07/24/24 10:46 Ur Specific Gravit y 1.009 (1.005-1.0 30) 07/24/24 10:46 Urine Protein Negative (Negati ve) 07/24/24 10:46 Urine Glucose (UA) Negative (Normal ) 07/24/24 10:46 Urine Ketones 1+ (Negative) H 07/24/24 10:46 Urine Blood Negative (Negati ve) 07/24/24 10:46 Urine Nitrate Negative (Negati ve) 07/24/24 10:46 Urine Bilirubin Negative (Negati ve) 07/24/24 10:46 Urine Urobilinogen 0.2 mg/dL (Negati ve) 07/24/24 10:46 Ur Leukocyte Ruth ase Negative (Negati ve) 07/24/24 10:46 Urine RBC 0-2 /hpf (0-2) 07/24/24 10:46 Urine WBC 0-5 /hpf (0-5) 07/24/24 10:46 Ur Squamous Epith Cells 0-5 /hpf (0-5) 07/24/24 10:46 Amorphous Sediment Not Reportable 07/24/24 10:46 Urine Bacteria None seen /hpf (N ONE) 07/24/24 10:46 Hyaline Casts 0-4 /lpf H 07/24/24 10:46 Salicylates < 0.3 mg/dL (3-10 ) L 07/24/24 11:43 Urine Opiates Scre en Negative ng/mL (N egative) 07/24/24 10:46 Acetaminophen < 5.0 ug/mL (10-3 0) L 07/24/24 11:43 Ur Barbiturates Sc reen Negative ng/mL (N egative) 07/24/24 10:46 Ur Phencyclidine S crn Negative ng/mL (N egative) 07/24/24 10:46 Ur Amphetamines Sc reen Positive ng/mL (N egative) H 07/24/24 10:46 U Benzodiazepines Scrn Negative ng/mL (N egative) 07/24/24 10:46 Urine Cocaine Scre en Negative ng/mL (N egative) 07/24/24 10:46 U Marijuana (THC) Screen Positive ng/mL (N egative) H 07/24/24 10:46 Ethyl Alcohol < 10 mg/dL (0-10) 07/24/24 11:43 Hepatitis A IgM Ab Non-reactive (No nreactive) 07/27/24 16:05 Hep Bs Antigen Non-reactive (No nreactive) 07/27/24 16:05 Hep Bs Antibody 109.2 (11.5-1000 ) 07/27/24 16:05 Hep B Core Total A b Non-reactive (No nreactive) 07/27/24 16:05 Hepatitis C Antibo dy Non-reactive (No nreactive) 07/27/24 16:05 Vitals: Last Vital Signs Temp 98 F 07/28/24 06:00 Pulse 94 07/28/24 06:00 Resp 15 07/28/24 06:00 BP 93/63 07/28/24 06:00 Pulse Ox 99 07/28/24 06:00 O2 Del Method Room Air 07/28/24 06:00 Discharge Plan Discharge Patient Disposition: Home Condition: Stable Prescriptions: Continued multivit with min-folic acid [Women's Multivitamin Gummies] 200 mcg Tablet,Chewable 2 tab PO DAILY Discharge Orders: Discharge Order (Routine); Ordered 07/28/24 Ordered By: Lion Horowitz Referrals: [facility] [Other] Discharge Diet: Usual diet Discharge Activity: Resume usual activity Patient Instructions: Opioid Safety Discharge Attestations NPU Time Spent in Discharge Care*: less than 30 min Specific Discharge Activities: Specific discharge activities: educating patient, discussing with nurse case manager/social workers/dc planners and document ing/other paperwork Coding Level of Care Code Acute Code for Chg Fwd Diagnoses Depression, unspecified F32.A Suicide attempt by drug ingestion T50.902A Methamphetamine use F15.10
[2024-07-28 13:38] VITALS: BP 93/63; PULSE 94; RESP 16; TEMP 36.7; O2SAT 99
== END 2024-07-28 13:40 | disposition home or self-care (01) | DRG 918 ==
LOC: ER 10:53 → OR 10:54 → ER IP 13:42 → NP 13:56
PROVIDERS: Student in an Organized Health Care Education/Training Program; Admitting Provider Psychiatry & Neurology Psychiatry; Emergency Provider Family Medicine; Visit Provider Psychiatry & Neurology Psychiatry
DX: T65.892A Toxic effect of other specified substances, intentional self-harm, initial encounter (principal); F15.90 Other stimulant use, unspecified, uncomplicated; F12.90 Cannabis use, unspecified, uncomplicated; F32.A Depression, unspecified
CPT/HCPCS: 36415; 71045; 80053; 80306; 80307; 81001; 85025; 86705; 86706; 86709; 86803; 87340; 97150; 97165; 99285